=== PATIENT | female | born 2000 | race Two or more races ===

== ENCOUNTER 2024-11-30 18:52 | Emergency (ER) | payer MEDICAID, OTHER ==
[~2024-11-30] VITALS: Ht 160 cm; Wt 63.1 kg
[2024-11-30 19:34] VITALS: BP 119/74; RESP 16; TEMP 97.8; O2SAT 98
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
[2024-11-30 22:46] VITALS: PULSE 71
--- NOTE | 2024-11-30 22:47 | DVH ---
EXAMINATION: 3 views of the left ankle CLINICAL HISTORY: LEFT ANKLE PAIN COMPARISON: None Findings and impression: Question ankle joint effusion. Otherwise no grossly displaced fractures, dislocations or bony destruc tive changes are evident on the provided views. The ankle mortise appears intact. If symptoms persist, follow-up MRI may be obtained to further evaluate. CT may also be considered in the acute setting if there is concern for osseous injury.
== END 2024-11-30 23:01 | disposition home or self-care (01) ==
LOC: ER 18:52
DX: S93.402A Sprain of unspecified ligament of left ankle, initial encounter (principal); X58.XXXA Exposure to other specified factors, initial encounter; Y93.89 Activity, other specified; Y92.89 Other specified places as the place of occurrence of the external cause; Y99.8 Other external cause status
CPT/HCPCS: 73610